=== PATIENT | male | born 1965 | race Caucasian/White ===

== ENCOUNTER → 2019-03-04 15:25 | Outpatient (CLI) | payer OTHER, SELFPAY ==
--- NOTE | 2019-03-04 15:30 | MR_ITS ---
MR knee LT wo con Ordering Physician: Norma Lunsford MD Patient Age: 53 years: Male HISTORY: ITS.REASON: left knee injury left knee pain. Injured 2 weeks ago and pain all around knee. Anterior posterior medial and lateral. Some swelling. TECHNIQUE: Multiplanar multisequence imaging on 1.5 T wide bore Siemens MR. COMPARISON :None No plain films available FINDINGS Medial Compartment:: Osteochondral irregularity at posterior aspect of the medial femoral condyle, towards the notch . This spans up to 14 mm AP x 8 mm wide x 3.5 mm depth. Resides just superior to the posterior horn of the meniscus. Perhaps subtle thinning of cartilage along the medial tibial total no focal defect at the side of the joint Medial meniscus appears remains intact. Would noteModest size body & anterior horn, with generous sized posterior horn, but I see no appreciable pathology associated/no additional meniscal fragment appreciated at posterior Lateral Compartment No focal osteochondral defects. Perhaps some scant chondral thinning at the lateral tibial plateau, equivocal. Lateral meniscus appears to be grossly intact with no definitive tear.. Body of lateral meniscus may be perhaps very slightly laterally positioned from the joint. Patellofemoral joint. Chondral irregularity and scuffing. Definite osteochondral irregularities are seen at the posterior aspect of patella most evident at its midportion & along the central vertical ridge. Overall fairly satisfactory tracking of patella on axial images, with only slight lateral bias of patella relative to the femur Small joint effusion most evident at the lateral suprapatella bursa. The ACL and PCL are intact. The medial and lateral collateral ligaments appear intact. Quadriceps and patellar tendon appear satisfactory IMPRESSION.... Osteochondral defect along posterior aspect of the medial femoral condyle. Also Osteochondral irregularities along along the posterior aspect patella Small joint effusion.
== END ==
PROVIDERS: Visit Provider Orthopaedic Surgery
DX: M25.462 Effusion, left knee (principal); S89.90XA Unspecified injury of unspecified lower leg, initial encounter
CPT/HCPCS: 73721